=== PATIENT | male | born 1990 | race Caucasian/White ===

== ENCOUNTER 2023-11-17 17:46 | Emergency (ER) | payer BC ==
[2023-11-17] MEDS: Diphtheria,Pertussis(Acell),Tetanus Vaccine 0.5 ML Syringe IM ONE (18:45)
[2023-11-17] MEDS: Amoxicillin/Clavulanate K 875-125 MG Tab PO ONE (18:45)
[2023-11-17] MEDS: Lidocaine 1% with EPINEPHrine 1:100,000 10 ML MDV INJECT ONE (19:10)
[2023-11-17] MEDS: Lidocaine/Epineph/Tetracaine 3 ML Syringe TOP ONE (19:14)
[2023-11-17] MEDS: Bacitracin Oint 1 GM U/D Packet TOP ONE (19:31)
== END 2023-11-17 19:37 | disposition home or self-care (01) ==
LOC: MW.ED 17:46
DX: S01.81XA Laceration without foreign body of other part of head, initial encounter (principal); S01.551A Open bite of lip, initial encounter; W54.0XXA Bitten by dog, initial encounter; Z75.8 Other problems related to medical facilities and other health care
CPT/HCPCS: 12011; 90471; 90715; 99283; A9270; J3490